=== PATIENT | female | born 1945 | race Caucasian/White ===

== ENCOUNTER 2018-09-12 12:58 | Observation (INO) ==
[2018-09-12 13:51] LABS: Basophils # 0.1 K/mcL (0.0-0.2); Basophils % 0.7 %; Eosinophils # 0.2 K/mcL (0.0-0.6); Hematocrit 37.2 % (35.3-44.9); Hemoglobin 12.4 g/dL (11.5-15.4); Immature Granulocytes % 0.4 % (0-4); Lymphocytes # 2.8 K/mcL (0.6-4.6); Lymphocytes % 33.2 %; Mean Corpuscular HGB Conc 33.3 g/dL (31.6-35.5); Mean Corpuscular Volume 90.1 fL (83.0-100.0); Mean Platelet Volume 9.6 fL (9.4-12.4); Monocytes # 0.8 K/mcL (0.0-1.3); Monocytes % 9.4 %; Neutrophils # 4.6 K/mcL (1.6-8.9); Platelet Count 177 K/mcL (140-400); Red Blood Count 4.13 M/mcL (3.82-4.97); Red Cell Distribution Width 13.7 % (11.5-14.5); Segmented Neutrophils % 54.3 %; White Blood Count 8.5 K/mcL (4.3-11.1)
[2018-09-12 14:13] LABS: BUN/Creatinine Ratio 12 (6-26); Blood Urea Nitrogen 11 mg/dL (8-23); Calcium 9.3 mg/dL (8.6-10.3); Carbon Dioxide 27 mEq/L (23-29); Chloride 105 mEq/L (98-107); Glucose 131 mg/dL (70-105); Osmolality,Calculated 293 (280-300); Potassium 3.7 mEq/L (3.5-5.1); Sodium 141 mEq/L (136-145); Troponin I < 0.03 ng/mL (< 0.04); eGFR For African Americans > 60 (> 60); eGFR For Non-African Americans 58 (> 60)
--- NOTE | 2018-09-12 14:24 | Emergency Department Note ---
Disposition Clinical Impression: History of CHF (congestive heart failure), Dyspnea on exertion, Chest pain, History of heart valve replacement, Frail elderly, Abnormal EKG, History of hypertension, History of hypercholesterolemia Disposition: Admitted As Inpatient Referrals: Janae Mayfield MD [Primary Care Provider] - Forms: ED Satisfaction Letter Time of Disposition: 18:52 General Adult HPI - General Chief complaint: ED Shortness of Breath/Dyspnea Stated complaint: JOSE ROBERTO,CP Time Seen by Provider: 09/12/18 14:20 Source: patient Limitations: no limitations - History of Present Illness HPI Narrative: 72-year-old female reports to the emergency department complaining of left-sided chest pain which has been present for a week. She is also been short of breath. The patient describes remote cardiovascular surgery with cardiac valve replacement 2. She describes a history of hypertrophic cardiomyopathy. She has no history of CAD per her report. No prior aneurysm DVT or PE. There has been no abdominal pain vomiting or diarrhea. There is no history of fever. She has a known history of COPD but only wears oxygen at night. The patient describes a recent diarrheal illness back in June 2018, she was dehydrated and had to be admitted to the hospital. There is no history of anticoagulant therapy. No bleeding of any type. No confusion. No slurred speech facial drooping or any trouble walking talking hearing seeing or speaking. No trauma rash or fever. Slight cough with no history of leg swelling or pain coughing up blood or syncope. Significant dyspnea on exertion is noted. She describes a strong family history of coronary artery disease. She has no known history of cardiac stents. Pain Scale: 7 - Related Data Home Medications Medication Instructions Recorded Confirmed Aspirin [Adult Low Dose Aspirin EC] 81 mg PO DAILY 04/09/15 09/12/18 Carvedilol [Coreg] 25 mg PO BID 04/09/15 09/12/18 Omeprazole [PriLOSEC] 20 mg PO DAILY 04/09/15 09/12/18 Citalopram Hydrobromide [Celexa] 10 mg PO DAILY 08/21/15 09/12/18 Acetaminophen [Tylenol Arthritis] 650 mg PO Q8H PRN 07/20/18 09/12/18 Albuterol Sulfate [Proventil 2 puff IH [id number] PRN 07/20/18 09/12/18 Inhaler] Allopurinol [Zyloprim] 300 mg PO DAILY 07/20/18 09/12/18 Atorvastatin [Lipitor] 40 mg PO HS 07/20/18 09/12/18 Cyanocobalamin (Vitamin B-12) 1,000 mcg PO DAILY 07/20/18 09/12/18 [Vitamin B12] Diclofenac Sodium [Voltaren] 4 gm TP QID 07/20/18 09/12/18 Diltiazem CD (24hr) [Cardizem CD] 120 mg PO DAILY 07/20/18 09/12/18 Furosemide [Lasix] 40 mg PO DAILY 07/20/18 09/12/18 Losartan [Cozaar] 50 mg PO DAILY 07/20/18 09/12/18 Potassium Chloride [Klor-Con 10] 10 meq PO DAILY 07/20/18 09/12/18 Vit37/Iron/Folic Acid 1 each PO DAILY 07/20/18 09/12/18 [Prenata Chewable Tablet] Cholecalciferol (Vitamin D3) 2,000 unit PO DAILY 09/12/18 09/12/18 [Vitamin D] Allergies Allergy/AdvReac Type Severity Reaction Status Date / Time clindamycin [From Cleocin] Allergy Palpitation Verified 09/12/18 14:21 s piroxicam [From Feldene] Allergy Palpitation Verified 09/12/18 14:21 s Procainamide [From Procan SR] Allergy Palpitation Verified 09/12/18 14:21 s Sulfa (Sulfonamide Allergy Hives Verified 09/12/18 14:21 Antibiotics) sulfamethoxazole Allergy Hives Verified 09/12/18 14:21 [From Septra] Sulindac [From Clinoril] Allergy Palpitation Verified 09/12/18 14:21 s trimethoprim [From Septra] Allergy Hives Verified 09/12/18 14:21 oxycodone [From Percocet] AdvReac Dizziness Verified 09/12/18 14:21 All systems ED: reviewed and negative except as stated. Past Medical History - Past Medical History Medical history: Reports: arthritis, CHF, COPD, GERD, hyperlipidemia, hypertension Surgical history: Reports: cataract, other (Myomectomy for hypertrophic obstructive cardiomyopathy) Psychiatric history: Reports: anxiety [employer] history: Reports: no [employer] history - Social History Smoking Status: Never smoker Smokeless Tobacco Status: No Alcohol use: Reports: none Drug use: Reports: none Physical Exam - General Limitations: no limitations General appearance: alert, in no apparent distress - Head Head exam: atraumatic, normocephalic, normal inspection - Eye Eye exam: Present: normal appearance, PERRL, EOMI - ENT ENT exam: normal exam, normal oropharynx, mucous membranes moist, TM's normal bilaterally, normal external ear exam - Neck Neck exam: Present: normal inspection, full ROM, trachea midline - Chest Chest inspection: Present: symmetric chest wall rise. Absent: tenderness - Respiratory Respiratory exam: Present: normal lung sounds bilaterally. Absent: respiratory distress, wheezes, accessory muscle use, prolonged expiratory phase - Cardiovascular Cardiovascular exam: Present: regular rate, normal rhythm, normal heart sounds - Abdominal Exam Abdominal exam: Present: soft, Non-Tender, normal bowel sounds. Absent: tenderness, distention, guarding, rebound, rigidity - Extremities Exam Extremities exam: Present: normal inspection, normal capillary refill. Absent: joint swelling, calf tenderness - Expanded Lower Extremity Exam Lower leg exam: Absent: Homans' sign Neurovascular/Tendon exam: Present: normal capillary refill. Absent: motor deficit, sensory deficit, tendon deficit, extremity cold to touch, pallor - Back Exam Back exam: Present: normal inspection, full ROM. Absent: tenderness, CVA tenderness (R), CVA tenderness (L), vertebral tenderness - Neurological Exam Neurological exam: Present: alert, oriented X3, CN II-XII intact. Absent: motor sensory deficit - Psychiatric Psychiatric exam: Present: normal affect, normal mood - Skin Skin exam: Present: warm, dry, intact, normal color Course Vital Signs Temperature 97.7 F 09/12/18 13:06 Pulse Rate 62 09/12/18 13:06 Respiratory Rate 18 09/12/18 13:06 Blood Pressure 129/65 09/12/18 13:06 O2 Sat by Pulse Oximetry 99 09/12/18 13:06 Temperature 97.7 F 09/12/18 13:06 Pulse Rate 72 09/12/18 17:22 Respiratory Rate 12 09/12/18 17:22 Blood Pressure 120/68 09/12/18 17:22 O2 Sat by Pulse Oximetry 98 09/12/18 17:22 Oxygen Delivery Oxygen Delivery Room Air Medical Decision Making - [facility] Narrative Medical decision making narrative: The patient is elderly and has a history of cardiac valve replacement as well as hyperlipidemia and hypertension and a strong family history of coronary artery disease, her EKG is notably abnormal, it is consistent with prior EKG however with previous left bundle-branch block. Chest x-ray shows mild interstitial bria ma. Laboratory studies show no major abnormality. The patient describes significant dyspnea on exertion which is new for her. There is no history of prior DVT PE or cancer she is not anticoagulated. Aspirin was ordered. Based on the patient's elevated heart score, known vascular comorbidities including prior cardiac valve replacement, hypertension, hyperlipidemia, age, abnormal EKG, acute chest pain of dyspnea on exertion I thought it be appropriate to admit the patient to the hospital. She is highly agreeable. I discussed the case with the hospitalist on-call Dr. Clark who has excepted the patient to his care - Lab Data Lab results reviewed: Yes I reviewed the patient's lab results. Result diagrams: 09/12/18 13:36 09/12/18 13:36 Lab Results 09/12/18 09/12/18 09/12/18 Range/Units 13:36 13:36 13:36 WBC 8.5 (4.3-11.1) K/mcL RBC 4.13 (3.82-4.97) M/mcL Hgb 12.4 (11.5-15.4) g/dL Hct 37.2 (35.3-44.9) % MCV 90.1 (83.0-100.0) fL MCH 30.0 (28.0-33.3) pg MCHC 33.3 (31.6-35.5) g/dL RDW 13.7 (11.5-14.5) % Plt Count 177 (140-400) K/mcL MPV 9.6 (9.4-12.4) fL Immature Gran % 0.4 (0-4) % Seg Neutrophils % 54.3 % Lymphocytes % 33.2 % Monocytes % 9.4 % Eosinophils % 2.0 % Basophils % 0.7 % Neutrophils # 4.6 (1.6-8.9) K/mcL Lymphocytes # 2.8 (0.6-4.6) K/mcL Monocytes # 0.8 (0.0-1.3) K/mcL Eosinophils # 0.2 (0.0-0.6) K/mcL Basophils # 0.1 (0.0-0.2) K/mcL PT (9.4-12.1) Seconds INR APTT (26.0-36.0) Seconds Sodium 141 (136-145) mEq/L Potassium 3.7 (3.5-5.1) mEq/L Chloride 105 (98-107) mEq/L Carbon Dioxide 27 (23-29) mEq/L BUN 11 (8-23) mg/dL Creatinine 0.95 (0.60-1.20) mg/dL Est GFR ( Amer) > 60 (> 60) Est GFR (Non-Af Amer) 58 L (> 60) BUN/Creatinine Ratio 12 (6-26) Glucose 131 H (70-105) mg/dL Calculated Osmolality 293 (280-300) Lactic Acid 2.8 H (0.5-2.2) mmol/L Calcium 9.3 (8.6-10.3) mg/dL Total Bilirubin (0.3-1.0) mg/dL Direct Bilirubin (0.0-0.2) mg/dL Indirect Bilirubin (0.0-1.2) mg/dL AST (13-39) Units/L ALT (7-52) Units/L Alkaline Phosphatase (34-104) Units/L Troponin I < 0.03 (< 0.04) ng/mL C-Reactive Protein (Less than 10) mg/L B-Natriuretic Peptide (Less than 100) pg/mL Serum Total Protein (6.4-8.9) g/dL Albumin (3.5-5.7) g/dL Globulin (2.4-3.5) g/dL Albumin/Globulin Ratio (1.1-2.2) 09/12/18 09/12/18 09/12/18 Range/Units 13:36 14:48 14:48 WBC (4.3-11.1) K/mcL RBC (3.82-4.97) M/mcL Hgb (11.5-15.4) g/dL Hct (35.3-44.9) % MCV (83.0-100.0) fL MCH (28.0-33.3) pg MCHC (31.6-35.5) g/dL RDW (11.5-14.5) % Plt Count (140-400) K/mcL MPV (9.4-12.4) fL Immature Gran % (0-4) % Seg Neutrophils % % Lymphocytes % % Monocytes % % Eosinophils % % Basophils % % Neutrophils # (1.6-8.9) K/mcL Lymphocytes # (0.6-4.6) K/mcL Monocytes # (0.0-1.3) K/mcL Eosinophils # (0.0-0.6) K/mcL Basophils # (0.0-0.2) K/mcL PT 12.2 H (9.4-12.1) Seconds INR 1.1 APTT 33.1 (26.0-36.0) Seconds Sodium (136-145) mEq/L Potassium (3.5-5.1) mEq/L Chloride (98-107) mEq/L Carbon Dioxide (23-29) mEq/L BUN (8-23) mg/dL Creatinine (0.60-1.20) mg/dL Est GFR ( Amer) (> 60) Est GFR (Non-Af Amer) (> 60) BUN/Creatinine Ratio (6-26) Glucose (70-105) mg/dL Calculated Osmolality (280-300) Lactic Acid (0.5-2.2) mmol/L Calcium (8.6-10.3) mg/dL Total Bilirubin 0.6 (0.3-1.0) mg/dL Direct Bilirubin 0.1 (0.0-0.2) mg/dL Indirect Bilirubin 0.5 (0.0-1.2) mg/dL AST 21 (13-39) Units/L ALT 11 (7-52) Units/L Alkaline Phosphatase 78 (34-104) Units/L Troponin I (< 0.04) ng/mL C-Reactive Protein < 5 (Less than 10) mg/L B-Natriuretic Peptide 222 H (Less than 100) pg/mL Serum Total Protein 6.9 (6.4-8.9) g/dL Albumin 4.4 (3.5-5.7) g/dL Globulin 2.5 (2.4-3.5) g/dL Albumin/Globulin Ratio 1.8 (1.1-2.2) 09/12/18 Range/Units 17:51 WBC (4.3-11.1) K/mcL RBC (3.82-4.97) M/mcL Hgb (11.5-15.4) g/dL Hct (35.3-44.9) % MCV (83.0-100.0) fL MCH (28.0-33.3) pg MCHC (31.6-35.5) g/dL RDW (11.5-14.5) % Plt Count (140-400) K/mcL MPV (9.4-12.4) fL Immature Gran % (0-4) % Seg Neutrophils % % Lymphocytes % % Monocytes % % Eosinophils % % Basophils % % Neutrophils # (1.6-8.9) K/mcL Lymphocytes # (0.6-4.6) K/mcL Monocytes # (0.0-1.3) K/mcL Eosinophils # (0.0-0.6) K/mcL Basophils # (0.0-0.2) K/mcL PT (9.4-12.1) Seconds INR APTT (26.0-36.0) Seconds Sodium (136-145) mEq/L Potassium (3.5-5.1) mEq/L Chloride (98-107) mEq/L Carbon Dioxide (23-29) mEq/L BUN (8-23) mg/dL Creatinine (0.60-1.20) mg/dL Est GFR ( Amer) (> 60) Est GFR (Non-Af Amer) (> 60) BUN/Creatinine Ratio (6-26) Glucose (70-105) mg/dL Calculated Osmolality (280-300) Lactic Acid 1.1 (0.5-2.2) mmol/L Calcium (8.6-10.3) mg/dL Total Bilirubin (0.3-1.0) mg/dL Direct Bilirubin (0.0-0.2) mg/dL Indirect Bilirubin (0.0-1.2) mg/dL AST (13-39) Units/L ALT (7-52) Units/L Alkaline Phosphatase (34-104) Units/L Troponin I (< 0.04) ng/mL C-Reactive Protein (Less than 10) mg/L B-Natriuretic Peptide (Less than 100) pg/mL Serum Total Protein (6.4-8.9) g/dL Albumin (3.5-5.7) g/dL Globulin (2.4-3.5) g/dL Albumin/Globulin Ratio (1.1-2.2) - Radiology Data Radiology results reviewed: Yes I reviewed the patient's radiology results.
[2018-09-12] MEDS ORDERED: Aspirin 325 MG TABLET PO ONE (14:47)
[2018-09-12 15:13] LABS: INR 1.1; Prothrombin Time 12.2 Seconds (9.4-12.1)
[2018-09-12 15:15] LABS: Activated Partial Thrombo Time 33.1 Seconds (26.0-36.0)
[2018-09-12 15:24] LABS: Alanine Aminotransferase 11 Units/L (7-52); Albumin 4.4 g/dL (3.5-5.7); Albumin/Globulin Ratio 1.8 (1.1-2.2); Alkaline Phosphatase 78 Units/L (34-104); Aspartate Amino Transferase 21 Units/L (13-39); Bilirubin,Direct 0.1 mg/dL (0.0-0.2); Bilirubin,Indirect 0.5 mg/dL (0.0-1.2); Bilirubin,Total 0.6 mg/dL (0.3-1.0); C-Reactive Protein < 5 mg/L (Less than 10); Globulin 2.5 g/dL (2.4-3.5); Total Protein 6.9 g/dL (6.4-8.9)
[2018-09-12] MEDS ORDERED: Naloxone 0.4 MG/ML INJ IVP PRN (19:21)
[2018-09-12] MEDS ORDERED: Ondansetron 4 MG/2 ML VIAL IVP PRN (19:21)
[2018-09-12] MEDS ORDERED: Acetaminophen 325 MG TABLET PO PRN (19:21)
[2018-09-12] MEDS ORDERED: Furosemide 40 MG/4 ML VIAL IVP ONE (19:24)
--- NOTE | 2018-09-12 19:30 | Internal Med History&Physical ---
Date of Encounter: 09/12/18 Time of Encounter: 19:00 Internal Medicine - H&P: HPI Chief complaint: Chest pain Admitted From: Emergency Dept Plans for Post Hospital Care: Home History of present illness: Ms. Ch is a 72 year old female with a past medical history significant for hypertrophic cardio myopathy, hypertension, hypercholesterolemia, presented to the hospital with left-sided chest pain. Patient described a definite left- sided, dull, 8/10, radiating to her left arm, aggravated with movement, no relieving factors, no associated nausea, vomiting, diaphoresis. Patient does not have any history of CAD. Patient states currently taking aspirin at home. Patient notes that he did in the past, apparently septal myomectomy because of her hypertrophic cardiomyopathy. According to the patient, she also had valve repair in the past. She did not require any nitroglycerin or pain medication. At the time of the interview, patient's chest pain is very minimal. Patient also complained of increased shortness of breath in the past 1 week. She has a history of COPD, currently on 2 L of oxygen at home. Normally she gets short of breath when she is not walking Well, but recently she has been getting short of breath even with minimal exertion at home. This is quite unusual for her. Patient denies any smoking. Patient did mention that she noticed increased weight, increased lower estimate is swelling, orthopnea in the past few days. She has been taking Lasix at home,dose is variable because of her kidney functions. Denies any fever, chills, rigors, dysuria, hematuria, diarrhea, constipation. In ED, the patient was hemodynamically stable. EKG showed left bundle branch block, which is old. There are no acute changes. Troponin were within normal limits. Chest x-ray in the ED showed mild interstitial edema. She was admitted for further management. Past Med Surg Social Fam HX - Past Medical History Medical history: arthritis, CHF, COPD, GERD, hyperlipidemia, hypertension Additional medical history: Gout, Heart murmur, Leaky heart valve, Hypertropic cardiomyopathy. Psychiatric history: anxiety - Past Surgical History Surgical History: cataract, other (Myomectomy for hypertrophic obstructive cardiomyopathy) Additional surgical history: Open heart surgery, Fatty tumor removed from back, Bilateral cataract surgery - Social History Smoking Status: Never smoker Smokeless Tobacco Status: No Alcohol use: none Drug use: none - Family History Mother Adopted: No Family Member Ethnicity: Non- Living Status: Hx Family Cardiac Disorders: Yes (Heart attack, arteriosclerotic heart disease) Hx Family Respiratory Disorders: Yes Hx Family Cancer: Yes Hx Family GI Disorders: Yes Hx Family Endocrine Disorder: Yes (Diabetes) Hx Family Neuromuscular Disorders: No Hx Family Neurologic Disorders: No Hx Family HEENT Disorders: Yes Hx Family Autoimmune Disorders: Yes Father Living Status: Hx Family Cardiac Disorders: Yes (CAD, heart attack) Hx Family Endocrine Disorder: Yes (Diabetes) Daughter Living Status: Hx Family Cancer: Yes (Brain tumor) Sister Hx Family GI Disorders: Yes (Non alcoholic cirrhosis) Internal Medicine - H&P: Meds Aspirin [Adult Low Dose Aspirin EC] 81 mg PO DAILY 04/09/15 [History] Carvedilol [Coreg] 25 mg PO BID 04/09/15 [History] Omeprazole [PriLOSEC] 20 mg PO DAILY 04/09/15 [History] Citalopram Hydrobromide [Celexa] 10 mg PO DAILY 08/21/15 [History] Acetaminophen [Tylenol Arthritis] 650 mg PO Q8H PRN 07/20/18 [History] Albuterol Sulfate [Proventil Inhaler] 2 puff IH [id number] PRN 07/20/18 [History] Allopurinol [Zyloprim] 300 mg PO DAILY 07/20/18 [History] Atorvastatin [Lipitor] 40 mg PO HS 07/20/18 [History] Cyanocobalamin (Vitamin B-12) [Vitamin B12] 1,000 mcg PO DAILY 07/20/18 [History] Diclofenac Sodium [Voltaren] 4 gm TP QID 07/20/18 [History] Diltiazem CD (24hr) [Cardizem CD] 120 mg PO DAILY 07/20/18 [History] Furosemide [Lasix] 40 mg PO DAILY 07/20/18 [History] Losartan [Cozaar] 50 mg PO DAILY 07/20/18 [History] Potassium Chloride [Klor-Con 10] 10 meq PO DAILY 07/20/18 [History] Vit37/Iron/Folic Acid [Prenata Chewable Tablet] 1 each PO DAILY 07/20/18 [History] Cholecalciferol (Vitamin D3) [Vitamin D] 2,000 unit PO DAILY 09/12/18 [History] Allergy/AdvReac Type Severity Reaction Status Date / Time clindamycin [From Cleocin] Allergy Palpitation Verified 09/12/18 14:21 s piroxicam [From Feldene] Allergy Palpitation Verified 09/12/18 14:21 s Procainamide [From Procan SR] Allergy Palpitation Verified 09/12/18 14:21 s Sulfa (Sulfonamide Allergy Hives Verified 09/12/18 14:21 Antibiotics) sulfamethoxazole Allergy Hives Verified 09/12/18 14:21 [From Septra] Sulindac [From Clinoril] Allergy Palpitation Verified 09/12/18 14:21 s trimethoprim [From Septra] Allergy Hives Verified 09/12/18 14:21 oxycodone [From Percocet] AdvReac Dizziness Verified 09/12/18 14:21 All Systems PM: A 10-system review of systems was performed and is negative for pertinent findings except as documented above in the HPI. Review of systems: General: Negative for fever, chills, rigors. HEENT: Negative for swelling, discharge from nose, discharge from ears. EYES: Negative for any discharge from the eyes. Respiratory: See HPI Cardiovascular: See HPI Gastrintestical: Negative for diarrhea, constipation, blood in stools. Genitourinary: Negative for dysuria, hematuria, nocturia, increased frequency of urine. Hematological: Negative for blood loss, negative for active cancer. Neurological: Negative for headache, dizziness, blurry vision, loss os power and sensations. Endocrinology: Negative for constipation, polyuria, polydipsia. Psychiatric: Negative for anxiety or depression. - Constitutional Vitals: Temp Pulse Resp BP Pulse Ox 97.7 F 74 13 142/77 99 09/12/18 13:06 09/12/18 19:15 09/12/18 19:15 09/12/18 19:15 09/12/18 19:15 Exam: General: Alert and oriented, mild distress, able to follow commands. HEENT: No thyromegaly, no lymphadenopathy, no discharge. Eyes: No discharge. Respiratory: Normal vesicular breathing, no added sounds, breathing equal in both sides. CVS: Normal heart sounds, no murmurs, no edema. Extremities: mild 1 + peripheral edema, peripheral pulses intact. Lymph nodes: No lymphadenopathy Gastrointestinal: Soft, nontender abdomen, normal abdominal sounds. No distention noted. Genitourinary: No paravertebral tenderness. Neurological: Alert and oriented. No focal deficits. Cranial nerves II-XII intact. Internal Med - H&P Results - Labs CBC & Chem 7: 09/12/18 13:36 09/12/18 13:36 Labs: Short CBC 09/12/18 Range/Units 13:36 WBC 8.5 (4.3-11.1) K/mcL Hgb 12.4 (11.5-15.4) g/dL Hct 37.2 (35.3-44.9) % Plt Count 177 (140-400) K/mcL Neutrophils # 4.6 (1.6-8.9) K/mcL BMP 09/12/18 13:36 Sodium 141 Potassium 3.7 Chloride 105 Carbon Dioxide 27 BUN 11 Creatinine 0.95 Glucose 131 H Calcium 9.3 Cardiac Enzymes 09/12/18 Range/Units 13:36 Troponin I < 0.03 (< 0.04) ng/mL Liver Function 09/12/18 Range/Units 14:48 Total Bilirubin 0.6 (0.3-1.0) mg/dL Direct Bilirubin 0.1 (0.0-0.2) mg/dL AST 21 (13-39) Units/L ALT 11 (7-52) Units/L Alkaline Phosphatase 78 (34-104) Units/L Albumin 4.4 (3.5-5.7) g/dL - Impressions ITS Impressions Chest X-Ray 09/12/18 13:12 IMPRESSION: 1. Mild interstitial edema. D/ / 09/12/2018 15:22:27 Enriqueta Alanis MD / [facility] Interpreting Provider: Enriqueta Alanis MD - Assessment and Plan (1) Acute congestive heart failure Current Visit: Yes Status: Acute Assessment and plan: Increased lower extremity swelling, increased shortness of breath in the past few days, elevated BNP, chest x-ray evidence of interstitial edema, seems like acute on chronic diastolic heart failure. Most recent echo was done in 2016 as per the records which showed normal ejection fraction. Patient with history of hypertrophic obstructive cardiomyopathy status post septal myomectomy Order Lasix 40 mg IV once. We will decide about the further dosing of Lasix tomorrow depending upon the patient symptoms and output. Input and output. Echocardiogram. Cardiology consult. Qualifiers: Heart failure type: diastolic Qualified Code(s): I50.31 - Acute diastolic (congestive) heart failure (2) Dyspnea on exertion Current Visit: Yes Status: Acute Assessment and plan: seems to be related to congestive heart failure. Treatment plan outlined above. (3) Chest pain Current Visit: Yes Status: Acute Assessment and plan: Unlikely to be cardiac in nature considering no new EKG changes, normal troponins, atypical pain, only aspect is the pain was radiating to the left side yesterday. Cardiology on board. Will defer stress tiffanie or further testing to cardiolgoy Qualifiers: Chest pain type: other chest pain Qualified Code(s): R07.89 - Other chest pain; R07.8 - Other chest pain (4) History of hypercholesterolemia Current Visit: Yes Status: Acute Assessment and plan: Continue statins. (5) History of hypertension Current Visit: Yes Status: Acute Assessment and plan: Continue losartan, tracheotomy, carvedilol. Blood pressure is currently stable. (6) DVT prophylaxis Current Visit: No Status: Inactive Assessment and plan: Subcutaneous heparin. (7) 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 Current Visit: Yes Status: Acute Assessment and plan: -Hx of obstructive cardiomypathy status post septal myomectomy -Continue home meds coreg, losartan. - Time Spent With Patient Total time spent is greater than 50% in coordination of care (as documented) at patient's floor/unit and/or counseling patient:
[2018-09-12] MEDS ORDERED: (Diclofenac Sodium [Voltaren] 4 GM) TP SCH (21:00)
[2018-09-13] MEDS: *HR* Heparin 5,000 UNIT/ML VIAL SQ SCH ×2 (06:59→18:17)
[2018-09-13 07:00] LABS: Hematocrit 38.3 % (35.3-44.9); Hemoglobin 12.9 g/dL (11.5-15.4); Mean Corpuscular HGB Conc 33.7 g/dL (31.6-35.5); Mean Corpuscular Hemoglobin 30.3 pg (28.0-33.3); Mean Corpuscular Volume 89.9 fL (83.0-100.0); Mean Platelet Volume 9.6 fL (9.4-12.4); Platelet Count 187 K/mcL (140-400); Red Blood Count 4.26 M/mcL (3.82-4.97); Red Cell Distribution Width 13.8 % (11.5-14.5); White Blood Count 10.4 K/mcL (4.3-11.1)
[2018-09-13 07:17] LABS: BUN/Creatinine Ratio 15 (6-26); Blood Urea Nitrogen 15 mg/dL (8-23); Calcium 9.5 mg/dL (8.6-10.3); Carbon Dioxide 30 mEq/L (23-29); Chloride 101 mEq/L (98-107); Glucose 103 mg/dL (70-105); Osmolality,Calculated 297 (280-300); Potassium 3.3 mEq/L (3.5-5.1); Sodium 143 mEq/L (136-145); eGFR For African Americans > 60 (> 60); eGFR For Non-African Americans 54 (> 60)
[2018-09-13] MEDS: Cyanocobalamin (B-12) 1,000 MCG TABLET PO SCH (08:36)
[2018-09-13] MEDS: Prenatal Vit/FA 1 EACH TABLET PO SCH (08:36)
[2018-09-13] MEDS: Cholecalciferol (D-3) 1,000 UNIT (25MCG) TABLET PO SCH (08:36)
[2018-09-13] MEDS: Diltiazem CD (24hr) 120 MG CAPSULE PO SCH (08:36)
[2018-09-13] MEDS: Aspirin Enteric Coated 81 MG Tablet PO SCH (08:36)
--- NOTE | 2018-09-13 08:41 | Cardiology Consult Note ---
<SincereReinier maddox - Last Filed: 09/13/18 14:11> Date of Encounter: 09/13/18 Time of Encounter: 08:41 Assessment and Plan (1) Chest pain Current Visit: Yes Status: Acute - Initially presented with left-sided chest pain radiating to left arm of ap proximately one week's duration - She described pain as vague and pressure-like; worse with exertion, relieved by acetaminophen - She reports multiple prior episodes of similar chest pain in the past before she was diagnosed with HOCM, but has had no recent episodes - EKG demonstrated left bundle branch block, unchanged from previous; troponin was unremarkable - Denies active chest pain during exam and since admission - She reports multiple ischemic workups in the past, including multiple stress tests and at least 2 LHCs; was never formally diagnosed with CAD - She has extensive family history of CAD on both sides of her family, and has a known diagnosis of carotid artery stenosis Plan: - We will perform pharmacologic stress test tomorrow - Will keep patient NPO at midnight Qualifiers: Chest pain type: other chest pain Qualified Code(s): R07.89 - Other chest pain; R07.8 - Other chest pain (2) Acute congestive heart failure Current Visit: Yes Status: Acute - Patient has a known history of HFpEF; normally takes Lasix 40 mg by mouth daily at home - Reported shortness of breath, increased lower extremity edema, and worsening orthopnea on presentation - Also reported worsening dyspnea on exertion - DAMIR in 2016 demonstrated normal ejection fraction with severe mitral regurgitation - Also has a known history of HOCM status post septal myomectomy - CXR demonstrated mild interstitial edema - Labs showed an elevated BNP at 222 Plan: - Repeat TTE has been ordered and is currently pending - Strict intake and output, daily weights, fluid restriction Qualifiers: Heart failure type: diastolic Qualified Code(s): I50.31 - Acute diastolic (congestive) heart failure (3) 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 Current Visit: Yes Status: Acute - Patient has a known history of HOCM with history of myomectomy in July 2013 - Patient was told that her septal wall has been enlarging over the past several years - Denies having any current symptoms - Will likely need close outpatient follow-up - Pharmacologic stress test for chest pain as documented above (4) History of hypertension Current Visit: Yes Status: Acute - Well-controlled at this time - Continue home medications (5) History of hypercholesterolemia Current Visit: Yes Status: Acute - Continue statin (6) DVT prophylaxis Current Visit: No Status: Inactive - SQ heparin Discussion w patient/family: The assessment and plan as outlined above was discussed with the patient and/or family members who expressed understanding and agreement. All questions were answered. Thank you for involving us in the care of your patient. Please call with any questions. History of Present Illness Consult date: 09/13/18 Consult reason: CHF, chest pain Chief complaint: Chest pain History of present illness: Ms. Ch is a 72-year-old female with a PMH of COPD on 2 L of O2 at home, CHF, HLD, HTN, arthritis, carotid stenosis, HOCM s/p myomectomy who presented to the ED with chief complaint of left-sided chest pain. She described her pain as left-sided, dull, 8/10, radiating to left arm, worse with movement. Also complained of increasing shortness of breath for one week, as well as lower extremity swelling, increased weight, and orthopnea over the past few days. She has a known history of CHF and takes Lasix. She also has a history of valve repair and hypertrophic cardiomyopathy s/p myomectomy in the past. No known history of CAD. Upon arrival, vital signs were within normal limits. BNP was slightly elevated at 222. CXR demonstrated mild interstitial edema. EKG demonstrated LBBB, which is unchanged from previous. Troponin was negative. DAMIR on 02/05/16 and demonstrated ejection fraction 55%, moderate to severely dilated left atrium, mild prolapse of anterior mitral valve leaflet, severe mitral regurgitation, and moderate aortic regurgitation. A repeat echocardiogram is ordered and is currently pending. Patient was admitted for acute CHF exacerbation. She was given a one-time dose of 40 mg Lasix IV. During interview, patient states that she is feeling better than she did during admission. She denies active chest pain, palpitations, shortness of breath, fever, chills, diaphoresis, dizziness, lightheadedness, or visual disturbances. She reports that her lower extremity swelling has resolved since admission. She has not requiring supplemental oxygen, and is satting well on room air. She is not receiving Lasix at this time. Blood pressure is currently well-controlled. She has no complaints at this time. Given her multiple risk factors, including extensive family history of coronary artery disease and history of carotid stenosis, we will perform pharmacologic stress test tomorrow. Past Med Surg Social Fam HX - Past Medical History Medical history: arthritis, CHF, COPD, GERD, hyperlipidemia, hypertension Additional medical history: Gout, Heart murmur, Leaky heart valve, Hypertropic cardiomyopathy. Psychiatric history: anxiety - Past Surgical History Surgical History: cataract, other (Myomectomy for hypertrophic obstructive cardiomyopathy) Additional surgical history: Open heart surgery, Fatty tumor removed from back, Bilateral cataract surgery - Social History Smoking Status: Never smoker Smokeless Tobacco Status: No Alcohol use: none Drug use: none - Family History Mother Adopted: No Family Member Ethnicity: Non- Living Status: Hx Family Cardiac Disorders: Yes (Heart attack, arteriosclerotic heart disease) Hx Family Respiratory Disorders: Yes Hx Family Cancer: Yes Hx Family GI Disorders: Yes Hx Family Endocrine Disorder: Yes (Diabetes) Hx Family Neuromuscular Disorders: No Hx Family Neurologic Disorders: No Hx Family HEENT Disorders: Yes Hx Family Autoimmune Disorders: Yes Father Living Status: Hx Family Cardiac Disorders: Yes (CAD, heart attack) Hx Family Endocrine Disorder: Yes (Diabetes) Daughter Living Status: Hx Family Cancer: Yes (Brain tumor) Sister Hx Family GI Disorders: Yes (Non alcoholic cirrhosis) Medications and Allergies Aspirin [Adult Low Dose Aspirin EC] 81 mg PO DAILY 04/09/15 [History] Carvedilol [Coreg] 25 mg PO BID 04/09/15 [History] Omeprazole [PriLOSEC] 20 mg PO DAILY 04/09/15 [History] Citalopram Hydrobromide [Celexa] 10 mg PO DAILY 08/21/15 [History] Acetaminophen [Tylenol Arthritis] 650 mg PO Q8H PRN 07/20/18 [History] Albuterol Sulfate [Proventil Inhaler] 2 puff IH [id number] PRN 07/20/18 [History] Allopurinol [Zyloprim] 300 mg PO DAILY 07/20/18 [History] Atorvastatin [Lipitor] 40 mg PO HS 07/20/18 [History] Cyanocobalamin (Vitamin B-12) [Vitamin B12] 1,000 mcg PO DAILY 07/20/18 [History] Diclofenac Sodium [Voltaren] 4 gm TP QID 07/20/18 [History] Diltiazem CD (24hr) [Cardizem CD] 120 mg PO DAILY 07/20/18 [History] Furosemide [Lasix] 40 mg PO DAILY 07/20/18 [History] Losartan [Cozaar] 50 mg PO DAILY 07/20/18 [History] Potassium Chloride [Klor-Con 10] 10 meq PO DAILY 07/20/18 [History] Vit37/Iron/Folic Acid [Prenata Chewable Tablet] 1 each PO DAILY 07/20/18 [History] Cholecalciferol (Vitamin D3) [Vitamin D] 2,000 unit PO DAILY 09/12/18 [History] Allergy/AdvReac Type Severity Reaction Status Date / Time clindamycin [From Cleocin] Allergy Palpitation Verified 09/12/18 14:21 s piroxicam [From Feldene] Allergy Palpitation Verified 09/12/18 14:21 s Procainamide [From Procan SR] Allergy Palpitation Verified 09/12/18 14:21 s Sulfa (Sulfonamide Allergy Hives Verified 09/12/18 14:21 Antibiotics) sulfamethoxazole Allergy Hives Verified 09/12/18 14:21 [From Septra] Sulindac [From Clinoril] Allergy Palpitation Verified 09/12/18 14:21 s trimethoprim [From Septra] Allergy Hives Verified 09/12/18 14:21 oxycodone [From Percocet] AdvReac Dizziness Verified 09/12/18 14:21 All Systems Review: The remainder of the systems were reviewed and are negative - Constitutional Constitutional: no chills, no fever(s), no headache(s) - Cardiovascular Cardiovascular: no chest pain at rest, no chest pain with exertion, no diaphoresis, no dyspnea at rest, no dyspnea on exertion, no orthopnea, no palpitations, no rapid heart rate, no slow heart rate - Gastrointestinal Gastrointestinal: no abdominal pain Physical Examination Vital Signs, Last 4 Hours Temp Pulse Resp BP Pulse Ox 09/13/18 07:59 98.6 F 70 17 123/74 96 General: Conversant, No Apparent Distress HEENT: Atraumatic, Normocephaly, Mucus Membranes Moist Neck: No JVD, Normal carotid pulses Cardiac: Reg Rate and Rhythm, Normal S1 and S2, Other (Grade 2/6 crescendo decr escendo holosystolic murmur, best heard at second right intercostal space) Lungs: Normal Breath Sounds, No Wheeze, Rales, Rhonchi Neuro: Alert and responsive, No focal deficits noted Abdomen: Soft, Non-Tender Skin: No rashes noted on visualized skin Musculoskeletal: No Chest Wall Tenderness Extremities: No Clubbing, No Cyanosis, No Edema, Normal Pulses Results 09/13/18 06:16 09/13/18 06:16 Lab Results 09/12/18 09/12/18 09/12/18 13:36 13:36 13:36 WBC 8.5 Hgb 12.4 Hct 37.2 Plt Count 177 INR APTT Sodium 141 Potassium 3.7 Chloride 105 Carbon Dioxide 27 BUN 11 Creatinine 0.95 Glucose 131 H Calcium 9.3 Total Bilirubin AST ALT Alkaline Phosphatase Troponin I < 0.03 B-Natriuretic Peptide 222 H 09/12/18 09/12/18 09/13/18 14:48 14:48 06:16 WBC 10.4 Hgb 12.9 Hct 38.3 Plt Count 187 INR 1.1 APTT 33.1 Sodium Potassium Chloride Carbon Dioxide BUN Creatinine Glucose Calcium Total Bilirubin 0.6 AST 21 ALT 11 Alkaline Phosphatase 78 Troponin I B-Natriuretic Peptide 09/13/18 06:16 WBC Hgb Hct Plt Count INR APTT Sodium 143 Potassium 3.3 L Chloride 101 Carbon Dioxide 30 H BUN 15 Creatinine 1.01 Glucose 103 Calcium 9.5 Total Bilirubin AST ALT Alkaline Phosphatase Troponin I B-Natriuretic Peptide Consult Discharge Plan - Plan Referrals: Janae Mayfield MD [Primary Care Provider] - < A - Last Filed: 09/13/18 16:33> Date of Encounter: 09/13/18 - Attending Attestation I have personally performed a face to face evaluation on this patient. I have reviewed and agree with the documented findings and care plan as documented by the resident. History and Exam by me shows: 72-year-old female, with history of hypertrophic cardiomyopathy status post septal myomectomy at [facility] in 2013. She reportedly had some mitral regurgitation at that time, but at the time of her myomectomy did not seem to be that severe and was not intervened upon. Over the next several ye ars, she developed more severe mitral valve regurgitation and also developed aortic valve insufficiency as well and developed some failure. She reportedly therefore in December 2015, she had a second open heart surgery where they replaced both the aortic and mitral valves with bioprosthetic valves at her catheterization prior to her mitral and aortic valve replacement. She did not have enough coronary disease to warrant coronary bypass at the time of her valve replacements. Now presents with left-sided chest pain radiating to her left arm which occurred at rest. No dizziness lightheadedness or syncope AAOX3 in NAD at the bedside Hemodynamically stable Cardiopulmonary exam revealed S1, S2, grade 2/6 ejection systolic murmur; clear lungs Rhythm reviewed - sinus rhythm, no acute ST T changes Echo preserved EF, no significant gradient across the LVOT Impression/plan: Atypical chest pain. Recommend pharmacological stress test. HCM.- Continue beta castillo; cautious diuresis Jimbo Cuba MD [facility] Assessment and Plan Discussion w patient/family: The assessment and plan as outlined above was discussed with the patient and/or family members who expressed understanding and agreement. All questions were answered. Thank you for involving us in the care of your patient. Please call with any questions. History of Present Illness History of present illness: Ms. Ch is a 72 year old female All Systems Review: The remainder of the systems were reviewed and are negative Physical Examination Vital Signs, Last 4 Hours Pulse BP 09/13/18 15:07 74 95/61 Results 09/13/18 06:16 09/13/18 06:16 Lab Results 09/13/18 09/13/18 06:16 06:16 WBC 10.4 Hgb 12.9 Hct 38.3 Plt Count 187 Sodium 143 Potassium 3.3 L Chloride 101 Carbon Dioxide 30 H BUN 15 Creatinine 1.01 Glucose 103 Calcium 9.5
--- NOTE | 2018-09-13 09:11 | Electrocardiograph Report ---
[place] [id number] Test Date: 2018-09-12 Pat Name: Padmini Ch Department: 104 Room: 2A Gender: F Director Of Special Events: Justin : 1945 Requested By: Hakeem Dominguez Order Number: [id number] Reading MD: Jesús Guaman Measurements Intervals [place] Rate: 78 P: 38 TN: 153 QRS: -19 QRSD: 141 T: 91 QT: 464 QTc: 498 Interpretive Statements SINUS RHYTHM LEFT BUNDLE BRANCH BLOCK Electronically Signed On 09-13-2018 9:10:18 EDT by Jesús Guaman
--- NOTE | 2018-09-13 17:09 | Internal Med Progress Note ---
Hospitalist Progress Note - Encounter Date of Encounter: 09/13/18 Time of Encounter: 12:30 - Subjective Interval History: Patient seen at bedside. She has been feeling okay. Cord echo cardiographic today in the morning. Denies any chest pain, shortness of breath today but she has not been moving around much. Denies any cough, sputum production. Denies any lower extremity swelling. - Exam Vitals: Temp Pulse Resp BP Pulse Ox 98.4 F 72 18 99/63 94 09/13/18 16:32 09/13/18 16:32 09/13/18 16:32 09/13/18 16:32 09/13/18 16:32 Exam: General: Alert and oriented, mild distress, able to follow commands. HEENT: No thyromegaly, no lymphadenopathy, no discharge. Eyes: No discharge. Respiratory: Normal vesicular breathing, no added sounds, breathing equal in both sides. CVS: Normal heart sounds, no murmurs, no edema. Extremities: mild 1 + peripheral edema, peripheral pulses intact. Lymph nodes: No lymphadenopathy Gastrointestinal: Soft, nontender abdomen, normal abdominal sounds. No distention noted. Genitourinary: No paravertebral tenderness. Neurological: Alert and oriented. No focal deficits. Cranial nerves II-XII intact. - Assessment and Plan (1) Acute congestive heart failure Current Visit: Yes Status: Acute Assessment and Plan: Increased lower extremity swelling, increased shortness of breath in the past few days, elevated BNP, chest x-ray evidence of interstitial edema, seems like acute on chronic diastolic heart failure. Most recent echo was done in 2016 as per the records which showed normal ej ection fraction. Patient with history of hypertrophic obstructive cardiomyopathy status post septal myomectomy Was given 1 dose of IV lasix yesterday, -Echo report still pending. Plan: Input and output. Start on home dose of lasix (2) Dyspnea on exertion Current Visit: Yes Status: Acute Assessment and Plan: seems to be related to congestive heart failure. Treatment plan outlined above. (3) Chest pain Current Visit: Yes Status: Acute Assessment and Plan: Unlikely to be cardiac in nature considering no new EKG changes, normal troponins, atypical pain, only aspect is the pain was radiating to the left side yesterday. -EKG with no new chages -Troponins normal -Cardiology planning stress test tomorrowy (4) History of hypercholesterolemia Current Visit: Yes Status: Acute Assessment and Plan: Continue statins. (5) History of hypertension Current Visit: Yes Status: Acute Assessment and Plan: Continue losartan, carvedilol. Blood pressure is currently stable. (6) DVT prophylaxis Current Visit: No Status: Inactive Assessment and Plan: Subcutaneous heparin. 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 (8) History of COPD Current Visit: No Status: Chronic Assessment and Plan: -Patient with history of COPD, currently on oxygen at home. Patient was on CPAP/BiPAP at some point but because of the affordability, currently patient is not on BiPAP. Patient wants to take care of the BiPAP on outpaitent basis - Time Spent with Patient Total time spent is greater than 50% in coordination of care (as documented) at patient's floor/unit and/or counseling patient: Internal Medicine: Result - Labs CBC & Chem 7: 09/13/18 06:16 09/13/18 06:16 Labs: Short CBC 09/13/18 Range/Units 06:16 WBC 10.4 (4.3-11.1) K/mcL Hgb 12.9 (11.5-15.4) g/dL Hct 38.3 (35.3-44.9) % Plt Count 187 (140-400) K/mcL BMP 09/13/18 06:16 Sodium 143 Potassium 3.3 L Chloride 101 Carbon Dioxide 30 H BUN 15 Creatinine 1.01 Glucose 103 Calcium 9.5 - ABG Interpretation ABG results: PT/INR, D-dimer PT 12.2 Seconds (9.4-12.1) H 09/12/18 14:48 - Impressions Impressions Chest X-Ray 09/12/18 13:12 IMPRESSION: 1. Mild interstitial edema. D/ / 09/12/2018 15:22:27 Enriqueta Alanis MD / [email or web address] Interpreting Provider: Enriqueta Alanis MD Consult Discharge Plan - Plan Referrals: Janae Mayfield MD [Primary Care Provider] - (1) Acute congestive heart failure Qualifiers: Heart failure type: diastolic Qualified Code(s): I50.31 - Acute diastolic (congestive) heart failure (3) Chest pain Qualifiers: Chest pain type: other chest pain Qualified Code(s): R07.89 - Other chest pain; R07.8 - Other chest pain
[2018-09-13] MEDS: Furosemide 40 MG TABLET PO SCH (21:32)
[2018-09-14 05:55] LABS: Basophils # 0.1 K/mcL (0.0-0.2); Basophils % 0.7 %; Eosinophils # 0.2 K/mcL (0.0-0.6); Eosinophils % 2.7 %; Hematocrit 40.2 % (35.3-44.9); Hemoglobin 13.5 g/dL (11.5-15.4); Immature Granulocytes % 0.3 % (0-4); Lymphocytes # 3.5 K/mcL (0.6-4.6); Lymphocytes % 39.8 %; Mean Corpuscular HGB Conc 33.6 g/dL (31.6-35.5); Mean Corpuscular Hemoglobin 30.8 pg (28.0-33.3); Mean Corpuscular Volume 91.8 fL (83.0-100.0); Mean Platelet Volume 9.6 fL (9.4-12.4); Monocytes % 10.8 %; Platelet Count 188 K/mcL (140-400); Red Blood Count 4.38 M/mcL (3.82-4.97); Red Cell Distribution Width 13.8 % (11.5-14.5); Segmented Neutrophils % 45.7 %; White Blood Count 8.8 K/mcL (4.3-11.1)
[2018-09-14] MEDS: *HR* Heparin 5,000 UNIT/ML VIAL SQ SCH (06:13)
[2018-09-14] MEDS ORDERED: Regadenoson 0.4 MG/5 ML SYRINGE IVP ONE (06:28)
[2018-09-14 06:34] LABS: Troponin I < 0.03 ng/mL (< 0.04)
[2018-09-14 06:43] LABS: BUN/Creatinine Ratio 18 (6-26); Blood Urea Nitrogen 19 mg/dL (8-23); Calcium 9.8 mg/dL (8.6-10.3); Carbon Dioxide 27 mEq/L (23-29); Chloride 101 mEq/L (98-107); Glucose 101 mg/dL (70-105); Osmolality,Calculated 302 (280-300); Potassium 3.9 mEq/L (3.5-5.1); Sodium 145 mEq/L (136-145); eGFR For African Americans > 60 (> 60); eGFR For Non-African Americans 50 (> 60)
--- NOTE | 2018-09-14 09:02 | Cardiology Progress Note ---
<Reinier Post - Last Filed: 09/14/18 13:44> Date of Encounter: 09/14/18 Time of Encounter: 09:30 Assessment and Plan (1) Chest pain Current Visit: Yes Status: Acute - Initially presented with left-sided chest pain radiating to left arm of ap proximately one week's duration - She described pain as vague and pressure-like; worse with exertion, relieved by acetaminophen - She reports multiple prior episodes of similar chest pain in the past before she was diagnosed with HOCM, but has had no recent episodes - EKG demonstrated left bundle branch block, unchanged from previous; troponin was unremarkable - She reports multiple ischemic workups in the past, including multiple stress tests and at least 2 LHCs; was never formally diagnosed with CAD - She has extensive family history of CAD on both sides of her family, and has a known diagnosis of carotid artery stenosis TTE demonstrated EF 50-55%, mild concentric LVH, mildly dilated LA, bioprostatic valve with MR, moderate MS, moderate MR, mild TR Stress test demonstrated no ischemia or infarct on perfusion study, fixed apical mid inferior perfusion defect of small size and moderate intensity with normal thickening and motion; nondiagnostic for ischemia Plan: - Cardiology will sign off at this time; recommend outpatient follow-up in 2-4 weeks Qualifiers: Chest pain type: other chest pain Qualified Code(s): R07.89 - Other chest pain; R07.8 - Other chest pain (2) CHF exacerbation Current Visit: Yes Status: Acute - Patient has a known history of HFpEF; normally takes Lasix 40 mg by mouth daily at home - Reported shortness of breath, increased lower extremity edema, and worsening orthopnea on presentation - Also reported worsening dyspnea on exertion - DAMIR in 2016 demonstrated normal ejection fraction with severe mitral regurgitation - Also has a known history of HOCM status post septal myomectomy - CXR demonstrated mild interstitial edema - Initial symptoms have resolved; continue home lasix Qualifiers: Qualified Code(s): I50.9 - Heart failure, unspecified (3) 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 Current Visit: Yes Status: Acute - Patient has a known history of HOCM with history of myomectomy in July 2013 - Patient was told that her septal wall has been enlarging over the past several years - Denies having any current symptoms - Will likely need close outpatient follow-up (4) History of hypertension Current Visit: Yes Status: Acute - Well-controlled at this time - Continue home medications (5) History of hypercholesterolemia Current Visit: Yes Status: Acute - Continue statin (6) DVT prophylaxis Current Visit: No Status: Inactive - SQ heparin Discussion w patient/family: The assessment and plan as outlined above was discussed with the patient and/or family members who expressed understanding and agreement. All questions were answered. Thank you for involving us in the care of your patient. Please call with any questions. Subjective Interval history: Patient seen and examined at bedside; reports feeling better today. Denies any episodes of chest pain in the last 24 hours. She reports that her blood pressure was low earlier this morning, and her blood pressure medications were subsequently held. She reports some fatigue, but denies any fever, chills, palpitations, shortness of breath, or chest discomfort. No further complaints at this time. Cardiology will sign off at this time; recommend outpatient followup with cardiology in 2-4 weeks. Objective Vital Signs, Last 4 Hours Temp Pulse Resp BP Pulse Ox 09/14/18 07:37 96 09/14/18 06:52 97.7 F 75 16 109/70 96 General: Conversant, No Apparent Distress HEENT: Atraumatic, Normocephaly, Mucus Membranes Moist Neck: No JVD, Normal carotid pulses Cardiac: Reg Rate and Rhythm, Normal S1 and S2, Other (2/6 systolic murmur, best heard at right second intercostal space) Lungs: Normal Breath Sounds, No Wheeze, Rales, Rhonchi Neuro: Alert and responsive, No focal deficits noted Abdomen: Soft, Non-Tender Skin: No rashes noted on visualized skin Musculoskeletal: No Chest Wall Tenderness Extremities: No Clubbing, No Cyanosis, No Edema, Normal Pulses Results 09/14/18 05:13 09/14/18 05:13 Lab Results 09/13/18 09/14/18 09/14/18 20:48 05:13 05:13 WBC 8.8 Hgb 13.5 Hct 40.2 Plt Count 188 Sodium 145 Potassium 4.0 3.9 Chloride 101 Carbon Dioxide 27 BUN 19 Creatinine 1.08 Glucose 101 Calcium 9.8 Troponin I < 0.03 Consult Discharge Plan - Plan Referrals: Janae Mayfield MD [Primary Care Provider] - <Lisa Nascimento - Last Filed: 09/14/18 14:59> Date of Encounter: 09/14/18 Assessment and Plan (1) 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 I agree with the documented findings, disposition and treatment plan as described except to the extent set forth below. 72-year-old female history of hypertrophic obstructive cardiomyopathy status post myomectomy July 2013 with bioprosthetic aortic and mitral valve replacement 2015 and patent coronaries. Atypical type chest pain with significant i mprovement in symptoms status post-stress test which showed no reversible ischemia and a preserved ejection fraction. Patient will likely need close cardiac follow-up in one to 2 weeks after discharge. Discussion w patient/family: The assessment and plan as outlined above was discussed with the patient and/or family members who expressed understanding and agreement. All questions were answered. Thank you for involving us in the care of your patient. Please call with any questions. Objective Vital Signs, Last 4 Hours Temp Pulse Resp BP Pulse Ox 09/14/18 12:37 96/57 09/14/18 11:49 98.1 F 78 16 93/58 93 Results 09/14/18 05:13 09/14/18 05:13 Lab Results 09/13/18 09/14/18 09/14/18 20:48 05:13 05:13 WBC 8.8 Hgb 13.5 Hct 40.2 Plt Count 188 Sodium 145 Potassium 4.0 3.9 Chloride 101 Carbon Dioxide 27 BUN 19 Creatinine 1.08 Glucose 101 Calcium 9.8 Troponin I < 0.03
[2018-09-14] MEDS: Furosemide 40 MG TABLET PO SCH (09:38)
[2018-09-14] MEDS: Cholecalciferol (D-3) 1,000 UNIT (25MCG) TABLET PO SCH (09:38)
[2018-09-14] MEDS: Aspirin Enteric Coated 81 MG Tablet PO SCH (09:39)
[2018-09-14] MEDS: Prenatal Vit/FA 1 EACH TABLET PO SCH (09:39)
[2018-09-14] MEDS: Cyanocobalamin (B-12) 1,000 MCG TABLET PO SCH (09:39)
[2018-09-14] MEDS: Diltiazem CD (24hr) 120 MG CAPSULE PO SCH (09:39)
--- NOTE | 2018-09-14 15:50 | Discharge Summary ---
Orders not resulted at time of discharge: Pending orders 09/12/18 14:43 Culture,Blood [BC] Stat 09/14/18 06:57 NM clare perf SPECT multi [NM] Routine Date of Encounter: 09/14/18 Time of Encounter: 10:45 - Discharge Diagnosis (1) Acute congestive heart failure Priority: Primary Status: Acute Qualifiers: Heart failure type: diastolic Qualified Code(s): I50.31 - Acute diastolic (congestive) heart failure (2) Dyspnea on exertion Priority: Secondary Status: Acute (3) Chest pain Priority: Secondary Status: Acute Qualifiers: Chest pain type: other chest pain Qualified Code(s): R07.89 - Other chest pain; R07.8 - Other chest pain (4) History of hypercholesterolemia Priority: Secondary Status: Acute (5) History of hypertension Priority: Secondary Status: Acute (6) 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 Ch is a 72 year old female with a past medical history significant for hypertrophic cardiomyopathy status post septal myomectomy, hypercholesterolemia, hypertension, presented to the hospital with left-sided chest pain and shortness of breath. Patient EKG showed bundle branch block but was unchanged from the previous one. Troponin is within normal limit. Chest x- ray showed mild interstitial edema. Patient was admitted with the management of diastolic heart failure. Patient was given IV diuretics on day 1, afterwards she was transitioned to oral diuretics. Cardiology was consulted. Patient had echocardiography which showed mild concentric left ventricular hypertrophy, bioprosthetic aortic valve with mild regurgitation, no stenosis. Patient also had a cardiac stress test today which did not show any ischemia or infarct. 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 Patient was restarted on her home medications and is being discharged back to home. Discharge discussed with: patient - Time Spent with Patient Total time spent providing and/or coordinating discharge services: 40 minutes - Discharge Medications Prescriptions: Continued Cholecalciferol (Vitamin D3) [Vitamin D3] 2,000 unit PO DAILY Omeprazole [PriLOSEC] 20 mg PO DAILY Carvedilol [Coreg] 25 mg PO BID Aspirin [Adult Low Dose Aspirin EC] 81 mg PO DAILY Citalopram Hydrobromide [Celexa] 10 mg PO DAILY Losartan [Cozaar] 50 mg PO DAILY Vit37/Iron/Folic Acid [Prenata Chewable Tablet] 1 each PO DAILY Potassium Chloride [Klor-Con 10] 10 meq PO DAILY Cyanocobalamin (Vitamin B-12) [Vitamin B12] 1,000 mcg PO DAILY Acetaminophen [Tylenol Arthritis] 650 mg PO Q8H PRN PRN Reason: Pain Atorvastatin [Lipitor] 40 mg PO HS Allopurinol [Zyloprim] 300 mg PO DAILY Albuterol Sulfate [Proventil Inhaler] 2 puff IH [id number] PRN PRN Reason: Wheezing Diltiazem CD (24hr) [Cardizem CD] 120 mg PO DAILY Furosemide [Lasix] 40 mg PO DAILY Home Medications: Aspirin [Adult Low Dose Aspirin EC] 81 mg PO DAILY 04/09/15 [History] Carvedilol [Coreg] 25 mg PO BID 04/09/15 [History] Omeprazole [PriLOSEC] 20 mg PO DAILY 04/09/15 [History] Citalopram Hydrobromide [Celexa] 10 mg PO DAILY 08/21/15 [History] Acetaminophen [Tylenol Arthritis] 650 mg PO Q8H PRN 07/20/18 [History] Albuterol Sulfate [Proventil Inhaler] 2 puff IH [id number] PRN 07/20/18 [History] Allopurinol [Zyloprim] 300 mg PO DAILY 07/20/18 [History] Atorvastatin [Lipitor] 40 mg PO HS 07/20/18 [History] Cyanocobalamin (Vitamin B-12) [Vitamin B12] 1,000 mcg PO DAILY 07/20/18 [History] Diltiazem CD (24hr) [Cardizem CD] 120 mg PO DAILY 07/20/18 [History] Furosemide [Lasix] 40 mg PO DAILY 07/20/18 [History] Losartan [Cozaar] 50 mg PO DAILY 07/20/18 [History] Potassium Chloride [Klor-Con 10] 10 meq PO DAILY 07/20/18 [History] Vit37/Iron/Folic Acid [Prenata Chewable Tablet] 1 each PO DAILY 07/20/18 [History] Cholecalciferol (Vitamin D3) [Vitamin D3] 2,000 unit PO DAILY 09/12/18 [History] Allergies/Adverse Reactions: Allergy/AdvReac Type Severity Reaction Status Date / Time clindamycin [From Cleocin] Allergy Palpitation Verified 09/12/18 14:21 s piroxicam [From Feldene] Allergy Palpitation Verified 09/12/18 14:21 s Procainamide [From Procan SR] Allergy Palpitation Verified 09/12/18 14:21 s Sulfa (Sulfonamide Allergy Hives Verified 09/12/18 14:21 Antibiotics) sulfamethoxazole Allergy Hives Verified 09/12/18 14:21 [From Septra] Sulindac [From Clinoril] Allergy Palpitation Verified 09/12/18 14:21 s trimethoprim [From Septra] Allergy Hives Verified 09/12/18 14:21 oxycodone [From Percocet] AdvReac Dizziness Verified 09/12/18 14:21 Date of admission: 09/12/18 19:28 Primary care physician: Janae Mayfield MD Consults: 09/12/18 19:23 Consult to Cardiology [CONS] Stat Comment: Consulting Provider: Cardiology Daily Reason for Consult: CHest pain Heart failure Call Completed: No 09/12/18 23:39 Consult to Kelp Cutter [CONS] Routine Reason for SW Consult: discharge planning, CPAP for home 09/13/18 09:52 Consult to Nurse Navigator [CONS] Routine Comment: chf - Constitutional Vitals: Temp Pulse Resp BP Pulse Ox 98.1 F 78 16 96/57 93 09/14/18 11:49 09/14/18 11:49 09/14/18 11:49 09/14/18 12:37 09/14/18 11:49 Exam: General: Alert and oriented, mild distress, able to follow commands. HEENT: No thyromegaly, no lymphadenopathy, no discharge. Eyes: No discharge. Respiratory: Normal vesicular breathing, no added sounds, breathing equal in both sides. CVS: Normal heart sounds, no murmurs, no edema. Extremities: mild 1 + peripheral edema, peripheral pulses intact. Lymph nodes: No lymphadenopathy Gastrointestinal: Soft, nontender abdomen, normal abdominal sounds. No distention noted. Genitourinary: No paravertebral tenderness. Neurological: Alert and oriented. No focal deficits. Cranial nerves II-XII intact. - Patient Status Disposition: Home, Self-Care Condition: Fair Overall status at discharge: patient is progressing back to baseline - Discharge Instructions Follow Up With: Janae Mayfield MD [Primary Care Provider] - - Diet and Activity Activity: increase activity as tolerated Diet: advance to your usual diet
[2018-09-14 16:28] VITALS: BP 100/67
== END 2018-09-14 17:02 | disposition home or self-care (01) ==
LOC: EMEROOARM 12:58 → 3BNU 12:58 → SUATTDRO 19:28 → 2ANU 19:38
PROVIDERS: ADMIT Internal Medicine; ATTEND Internal Medicine

== ENCOUNTER 2020-01-22 06:13 | Inpatient (IN) ==
[~2020-01-22 06:13] MED LIST: ceFAZolin 1,000 MG, Sodium Chloride IRRigation 1,000 ML IR ONE
[2020-01-22] MEDS ORDERED: CeFAZolin Syr 2,000MG/20 ML 2,000 MG/20 ML SYRINGE IVPB ONE (06:28)
[2020-01-22] MEDS ORDERED: Ringers Solution, Lactated 1,000 ML IVC SCH ×2 (06:30→07:15)
[2020-01-22] MEDS ORDERED: *HR* Labetalol 20 MG/4 ML SYRINGE IVP PRN ×2 (07:10→11:37)
[2020-01-22] MEDS ORDERED: Ondansetron 4 MG/2 ML VIAL IVP PRN (07:10)
[2020-01-22] MEDS ORDERED: *HR* HYDROmorphone PF 0.5 MG/0.5 ML SYRINGE IVP PRN (07:10)
[2020-01-22] MEDS ORDERED: *HR* Remifentanil 1 MG VIAL IVP ONE ×2 (07:11→07:17)
[2020-01-22] MEDS ORDERED: *HR* FentaNYL (PF) 100 MCG/2 ML VIAL ONE (07:11)
[2020-01-22] MEDS ORDERED: *HR* Propofol 200 MG/20 ML VIAL IVP ONE (07:12)
[2020-01-22] MEDS ORDERED: Lidocaine -MPF 2% 2 ML VIAL ONE ×2 (07:12→07:22)
[2020-01-22] MEDS ORDERED: *HR* Phenylephrine 10 MG/ML VIAL ONE (07:12)
[2020-01-22] MEDS ORDERED: Lidocaine HCL 4 ML Topical Solution (Laryng-O-Jet Kit Sterile Pak) TP ONE (07:12)
[2020-01-22] MEDS ORDERED: *HR* Rocuronium Bromide 50 MG/5 ML VIAL ONE (07:12)
[2020-01-22] MEDS ORDERED: *HR* Succinylcholine 200 MG/10 ML VIAL IVP ONE (07:12)
[2020-01-22] MEDS ORDERED: Heparin 1,000 UNITS/500 mL 500 ML ONE (07:13)
[2020-01-22] MEDS ORDERED: Heparin 1,000 UNITS/500 mL 1,000 ML ONE (07:14)
[2020-01-22] MEDS ORDERED: Ondansetron 4 MG/2 ML VIAL ONE (07:18)
[2020-01-22] MEDS ORDERED: Dexamethasone 4 MG/ML VIAL ONE (07:18)
[2020-01-22] MEDS ORDERED: *HR* Heparin 5,000 UNIT/ML VIAL ONE (07:18)
[2020-01-22] MEDS ORDERED: *HR* Midazolam HCl 2 MG/2 ML VIAL ONE (07:39)
[2020-01-22] MEDS ORDERED: EPHEDrine 50 MG/ML VIAL ONE (08:09)
[2020-01-22] MEDS ORDERED: Naloxone 0.4 MG/ML INJ IVP PRN (11:37)
[2020-01-22] MEDS ORDERED: Acetaminophen 325 MG TABLET PO PRN (11:37)
[2020-01-22] MEDS: CeFAZolin 2 GM/120 ML BAG IVPB SCH (15:03)
[2020-01-22] MEDS: carvediloL 25 MG TABLET PO SCH (21:30)
[2020-01-23] MEDS: CeFAZolin 2 GM/120 ML BAG IVPB SCH ×2 (00:19→09:05)
[2020-01-23 05:19] LABS: Basophils % 0.1 %; Hematocrit 33.9 % (35.3-44.9); Hemoglobin 11.1 g/dL (11.5-15.4); Immature Granulocytes % 0.7 % (0-4); Lymphocytes # 1.5 K/mcL (0.6-4.6); Mean Corpuscular HGB Conc 32.7 g/dL (31.6-35.5); Mean Corpuscular Hemoglobin 29.7 pg (28.0-33.3); Mean Corpuscular Volume 90.6 fL (83.0-100.0); Mean Platelet Volume 10.2 fL (9.4-12.4); Monocytes # 0.6 K/mcL (0.0-1.3); Monocytes % 5.3 %; Platelet Count 156 K/mcL (140-400); Red Blood Count 3.74 M/mcL (3.82-4.97); Red Cell Distribution Width 13.9 % (11.5-14.5); Segmented Neutrophils % 81.9 %; White Blood Count 12.2 K/mcL (4.3-11.1)
[2020-01-23 05:37] LABS: BUN/Creatinine Ratio 17 (6-26); Blood Urea Nitrogen 12 mg/dL (8-23); Calcium 8.6 mg/dL (8.6-10.3); Carbon Dioxide 24 mEq/L (23-29); Chloride 106 mEq/L (98-107); Glucose 139 mg/dL (70-105); Osmolality,Calculated 288 (280-300); Potassium 3.9 mEq/L (3.5-5.1); Sodium 138 mEq/L (136-145); eGFR For African Americans > 60 (> 60); eGFR For Non-African Americans > 60 (> 60)
[2020-01-23] MEDS ORDERED: allopurinoL 300 MG TABLET PO SCH (09:00)
[2020-01-23] MEDS ORDERED: Aspirin Enteric Coated 81 MG Tablet PO SCH (09:00)
[2020-01-23] MEDS ORDERED: Furosemide 40 MG TABLET PO SCH (09:00)
[2020-01-23] MEDS ORDERED: Cholecalciferol (D-3) 1,000 UNIT (25MCG) TABLET PO SCH (09:00)
[2020-01-23] MEDS ORDERED: Cyanocobalamin (B-12) 1,000 MCG TABLET PO SCH (09:00)
[2020-01-23] MEDS: carvediloL 25 MG TABLET PO SCH (09:05)
[2020-01-23 12:15] VITALS: BP 121/54
== END 2020-01-23 13:33 | disposition home or self-care (01) | DRG 38 ==
LOC: SAMDAY 06:13 → 2NNU 11:37
PROVIDERS: ADMIT Surgery Vascular Surgery; ATTEND Surgery Vascular Surgery